=== PATIENT | female | born 1950 | race Caucasian/White ===

== ENCOUNTER 2024-08-25 18:30 | Emergency (ER) | payer MEDICARE ==
[2024-08-25] MEDS: Acetaminophen/HYDROcodone 325-10 MG Tab PO ONE (19:23)
[2024-08-25] MEDS: predniSONE 20 MG Tab PO SCH (19:24)
[2024-08-25] MEDS: predniSONE 20 MG Tab ONE (19:27)
[2024-08-25] MEDS: Ketorolac 30 MG/ML SDV IM ONE (19:30)
[2024-08-25] MEDS: methylPREDNISolone Sodium Succinate 125 MG/2 ML SDV IM ONE (19:30)
== END 2024-08-25 19:36 | disposition home or self-care (01) ==
LOC: KA.ED 18:30
DX: M25.551 Pain in right hip (principal); Z79.82 Long term (current) use of aspirin; Z79.899 Other long term (current) drug therapy; Z91.040 Latex allergy status
CPT/HCPCS: 96372; 99283; A9270-GY; J1885; J2919; J7512